=== PATIENT | female | born 1990 | race Caucasian/White ===

== ENCOUNTER 2021-10-04 13:47 | Emergency (ER) | payer SELFPAY ==
[2021-10-04 14:10] VITALS: BP 122/62
[2021-10-04] MEDS ORDERED: KETOROLAC 10 MG TAB PO ONE (18:11)
[2021-10-04] MEDS ORDERED: CYCLOBENZAPRINE 10 MG TAB PO ONE (18:12)
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
== END 2021-10-04 20:09 | disposition home or self-care (01) ==
LOC: ED 13:47
DX: M25.562 Pain in left knee (principal); M79.662 Pain in left lower leg; V49.9XXA Car occupant (driver) (passenger) injured in unspecified traffic accident, initial encounter; Y93.89 Activity, other specified; Y92.89 Other specified places as the place of occurrence of the external cause; Y99.8 Other external cause status
CPT/HCPCS: 99283